=== PATIENT | male | born 1945 | race Caucasian/White ===

== ENCOUNTER 2017-08-27 23:15 | Emergency (ER) | payer OTHER ==
[~2017-08-27] VITALS: Ht 170.2 cm; Wt 75.0 kg
[~2017-08-27 23:15] MED LIST: ASPI81 PO; ATOR40TA PO; CANA300T PO; CHOL50006 PO; DICL75 PO; GEMF600 PO; GLIM1 PO; GLUCTAB PO; HYDR-3533 PO; METF500 PO; OMEP20CA5 PO
[2017-08-27 23:20] VITALS: BP 146/66; PULSE 66; RESP 20; TEMP 102; O2SAT 96
[2017-08-27] MEDS ORDERED: ATOR40TA16 PO (23:41)
[2017-08-27] MEDS ORDERED: ASPI-516 CHEW (23:41)
[2017-08-27] MEDS ORDERED: GEMF600T PO (23:41)
[2017-08-27] MEDS ORDERED: METF1000 PO (23:41)
[2017-08-27] MEDS ORDERED: GLIM1TAB PO (23:41)
[2017-08-27] MEDS ORDERED: CANA300T PO (23:41)
[2017-08-27] MEDS ORDERED: PRIL20TA2 PO (23:41)
== END 2017-08-28 00:30 | disposition left against medical advice (07) ==
LOC: PHED 23:15
DX: R05 Cough (principal); R50.9 Fever, unspecified; Z53.21 Procedure and treatment not carried out due to patient leaving prior to being seen by health care provider

== ENCOUNTER 2017-12-02 08:07 | Observation (INO) | payer OTHER ==
[2017-12-02] VITALS (9 sets, daily range): BP systolic 110–158; BP diastolic 59–71; PULSE 55–72; RESP 16–20; TEMP 96.5–99; O2SAT 94–98
[~2017-12-02] VITALS: Ht 170.2 cm; Wt 74.3 kg
[~2017-12-02 08:07] MED LIST changes: +ASPI-516 CHEW; -ASPI81 PO; -ATOR40TA PO; +ATOR40TA16 PO; -CHOL50006 PO; -DICL75 PO; -GEMF600 PO; +GEMF600T PO; -GLIM1 PO; +GLIM1TAB PO; -GLUCTAB PO; -HYDR-3533 PO; +METF1000 PO; -METF500 PO; -OMEP20CA5 PO; +PRIL20TA2 PO
[2017-12-02] MEDS ORDERED: GLIM2TAB PO (08:24)
[2017-12-02] MEDS ORDERED: SODIUM CHLOR 0.9% 1000 ML INJ 1,000 ML IV SCH (08:25)
[2017-12-02] MEDS ORDERED: MORPHINE SULFATE 4 MG/ML INJ IV PUSH ONE (08:30)
[2017-12-02] MEDS ORDERED: SODIUM CHLORIDE 0.9% FLUSH 10 ML FLUSH IV FLUSH PRN ×2 (08:30→12:00)
[2017-12-02] MEDS ORDERED: PROCHLORPERAZINE INJ 10 MG/2 ML VIAL IV PUSH ONE (08:30)
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
[2017-12-02 09:04] LABS: AUTOMATED NEUTROPHIL # 7.3 TH/MM3 (1.8-7.7); BASOPHIL # 0.1 TH/MM3 (0-0.2); BASOPHIL % 0.9 % (0.0-2.0); EOSINOPHIL # 0.1 TH/MM3 (0-0.4); HEMATOCRIT 45.7 % (39.0-51.0); HEMOGLOBIN 15.4 GM/DL (13.0-17.0); LYMPH % 12.4 % (9.0-44.0); LYMPHOCYTE # 1.2 TH/MM3 (1.0-4.8); MEAN CELL VOLUME 89.6 FL (80.0-100.0); MEAN CORPUSCULAR HEMOGLOBIN 30.3 PG (27.0-34.0); MEAN CORPUSCULAR HGB CONC 33.8 % (32.0-36.0); MEAN PLATELET VOLUME 9.2 FL (7.0-11.0); MONO % 7.5 % (0.0-8.0); MONOCYTE # 0.7 TH/MM3 (0-0.9); NEUT % 78.2 % (16.0-70.0); PLATELET COUNT 229 TH/MM3 (150-450); RED CELL DISTRIBUTION WIDTH 12.6 % (11.6-17.2); WHITE BLOOD COUNT 9.4 TH/MM3 (4.0-11.0)
[2017-12-02 09:09] LABS: CHLORIDE 100 MEQ/L (98-107); SODIUM (NA) 132 MEQ/L (136-145)
[2017-12-02 09:12] LABS: ALBUMIN 3.4 GM/DL (3.4-5.0); BICARBONATE 24.7 MEQ/L (21.0-32.0); BLOOD UREA NITROGEN 16 MG/DL (7-18); CALCIUM 8.5 MG/DL (8.5-10.1); GLUCOSE,RANDOM 295 MG/DL (74-106)
[2017-12-02 09:13] LABS: PROTHROMBIN TIME - PATIENT 10.5 SEC (9.8-11.6)
[2017-12-02 09:15] LABS: ALT (GPT) 23 U/L (12-78); AST (GOT) 30 U/L (15-37); GLOMERULAR FILTRATION RATE 74 ML/MIN (>89)
[2017-12-02 09:17] LABS: TOTAL BILIRUBIN ADULT 0.9 MG/DL (0.2-1.0); TOTAL PROTEIN 7.2 GM/DL (6.4-8.2)
[2017-12-02 09:18] LABS: ALKALINE PHOSPHATASE 58 U/L (45-117)
[2017-12-02] MEDS ORDERED: IOHEXOL 350 MG/ML 10 ML VIAL (for RAD DIAG) IVCONTRAST ONE (09:46)
[2017-12-02 10:36] LABS: BILIRUBIN, URINE NEG (NEG); BLOOD, URINE NEG (NEG); GLUCOSE,URINE 500 mg/dL (NEG); KETONE, URINE TRACE mg/dL (NEG); NITRITE,URINE NEG (NEG); URINE COLOR YELLOW (YELLW/STRAW); URINE LEUKOCYTE ESTERASE NEG (NEG)
[2017-12-02 10:46] LABS: SQUAMOUS EPITHELIAL CELL URINE 0-5 /hpf (0-5)
[2017-12-02 10:47] LABS: WBC, URINE 0-2 /hpf (0-5)
--- NOTE | 2017-12-02 10:48 | RADRPT ---
EXAM DATE: 12/02/2017 9:46 AM EDT AGE/SEX: 71 years / Male INDICATIONS: Diffuse abdominal pain and constipation x 4 days. Nausea and vomiting. CLINICAL DATA: This is the patient's initial encounter. Patient reports that signs and symptoms have been present for 4 - 6 days and indicates a pain score of 8/10. MEDICAL/SURGICAL HISTORY: Gastroesophageal reflux disease. Diabetes. Cardiovascular disease. Coronary artery stent. CABG. Fusion, cervical. ORAL CONTRAST: No oral contrast ingested. RADIATION DOSE: 10.68 CTDI (mGy) COMPARISON: [facility], CT ABDOMEN & PELVIS W CONTRAST, 11/02/2014. . TECHNIQUE: Multiple contiguous axial images were obtained through the abdomen and pelvis following b olus infusion of 80 ml Omnipaque 350 (iohexol) nonionic water-soluble contrast as a single exam dos e. No oral contrast ingested. Using automated exposure control and adjustment of the mA and/or kV ac cording to patient size, radiation dose was kept as low as reasonably achievable to obtain optimal di agnostic quality images. DICOM format image data is available electronically for review and comparis on. FINDINGS: Lower Lungs: The visualized lower lungs are clear. Liver: There is decreased density seen throughout the liver. There is a 0.7 cm hypodensity seen at th e posterior segment of the right lobe of the liver likely related to a cyst or hemangioma. It is nons pecific. There is a 0.9 cm calcified gallstone seen. There is also a smaller 4 mm suspected gallstone seen in a nondistended gallbladder. Spleen: Homogeneous density without enlargement. Pancreas: Unremarkable without mass or calcification. Kidneys: Normal in size and shape. No evidence of hydronephrosis. There is a 1.1 cm cyst seen at the superior left kidney. Adrenal Glands: Unremarkable. Aorta: Atherosclerotic calcifications are seen throughout the arterial system. There is a prominent area of calcification measuring 1.2 x 1.7 x 2.8 cm. seen anterior to the portal vein in the root of the mesentery. This is of uncertain etiology. It was present previously and appears unchanged. Bowel/Mesentery: There is distended small bowel in the mid left abdomen. There appears to be very pr ominently distended segment of small bowel seen in the upper abdomen just to the right of midline mounika suring 5.5 cm in diameter. There is a large amount of debris within the small bowel this region. Ther e does appear to be a transition point at the right lateral aspect of this is dilated segment of smal l bowel with more distal small bowel is clearly decompressed in the right mid abdomen. This appearanc e was also present on the prior CT examination from 2014. There is stool within the colon. There are scattered diverticula. Abdominal Wall: Surgical wires are seen in the midline anterior abdominal wall. Retroperitoneum: No evidence of adenopathy in the retrocrural, para-aortic, or deep pelvic regions. Bladder: Contours are smooth. Reproductive Organs: No abnormal masses or calcifications seen. Inguinal: The inguinal region is unremarkable without evidence of adenopathy. Bony Structures: Unremarkable. CONCLUSION: 1. Dilated segment of mid small bowel in the midabdomen with large amount of debris. The more proxim al small bowel is distended. There is a transition point at the right lateral aspect of this distende d segment of small bowel with decompressed bowel seen distally. Some partial obstruction may be prese nt. This appearance appears very similar on the prior CT examination from 2014 suggesting this is a c hronic issue versus intermittent recurrent abnormality. 2. Status post surgery in the past with sutures in the midline. This raises the possibility of adhes ions. 3. Hepatic steatosis. 4. Gallstones. Electronically signed by: Ismael Mcconnell MD 12/02/2017 10:47 AM EDT
[2017-12-02] MEDS: SODIUM CHLOR 0.9% 1000 ML INJ 1,000 ML IV SCH ×2 (11:54→21:54)
[2017-12-02] MEDS ORDERED: LACTULOSE SYRUP 20 GM/30 ML CUP PO PRN (12:00)
[2017-12-02] MEDS ORDERED: NALOXONE HCL 0.4 MG/ML AMP IV PUSH PRN (12:00)
[2017-12-02] MEDS ORDERED: MAGNESIUM HYDROXIDE SUSP 30 ML CUP PO PRN (12:00)
[2017-12-02] MEDS ORDERED: BISACODYL 10 MG SUPP RECTAL PRN (12:00)
[2017-12-02] MEDS ORDERED: SENNOSIDES 8.6 MG TAB PO PRN (12:00)
[2017-12-02] MEDS ORDERED: ACETAMINOPHEN 325 MG TAB PO PRN (12:00)
[2017-12-02] MEDS: ENOXAPARIN SODIUM 40 MG/0.4 ML SYRINGE SQ SCH (13:37)
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
[2017-12-02] MEDS ORDERED: DEXTROSE 50% IN WATER 50 ML VIAL(D50) IV PUSH PRN (19:00)
[2017-12-02] MEDS ORDERED: GLUCAGON 1 MG/ML VIAL OTHER PRN (19:00)
[2017-12-02] MEDS: SODIUM CHLORIDE 0.9% FLUSH 10 ML FLUSH IV FLUSH SCH (21:00)
[2017-12-03] VITALS: BP 105/56; PULSE 58; RESP 20; TEMP 97.9; O2SAT 97
--- NOTE | 2017-12-03 06:59 | RADRPT ---
EXAM DATE: 12/03/2017 6:44 AM EDT AGE/SEX: 71 years / Male INDICATIONS: Abdominal distention. CLINICAL DATA: This is the patient's subsequent encounter. Patient reports that signs and symptoms h ave been present for 4 - 6 days and indicates a pain score of 3/10. MEDICAL/SURGICAL HISTORY: . Gastroesophageal reflux disease. Diabetes. Cardiovascular disease. . Coronary artery stent. CABG. Fusion, cervical. COMPARISON: [facility], ABDOMEN FLAT & UPRIGHT, 11/03/2014. [facility], CT ABDOMEN & PELVIS W CONTRAST, 018. . FINDINGS: Supine and upright views of the abdomen were performed. The abdominal bowel gas pattern is normal. No air-fluid levels are seen. Cholelithiasis No abnormal masses, calcifications, or organomegaly is see n. The visualized lower lungs are clear. No evidence of free intraperitoneal gas. The osseous structu res are unremarkable. There is residual contrast within the bladder. CONCLUSION: No acute abnormalities. Electronically signed by: Conor Agustin MD 12/03/2017 6:57 AM EDT
[2017-12-03 07:22] LABS: BICARBONATE 25.8 MEQ/L (21.0-32.0); CALCIUM 7.5 MG/DL (8.5-10.1); CREATININE 0.76 MG/DL (0.60-1.30)
[2017-12-03 07:51] VITALS: BP 105/58; PULSE 80; RESP 20; TEMP 97.5; O2SAT 97
[2017-12-03] MEDS: SODIUM CHLORIDE 0.9% FLUSH 10 ML FLUSH IV FLUSH SCH (08:39)
[2017-12-03] MEDS ORDERED: POTASSIUM CHLOR 20 MEQ PREMIX 100 ML IV ONE (08:45)
--- NOTE | 2017-12-03 10:06 | HHI.PR ---
Subjective Remarks Patient seen and examined today for follow-up on small bowel obstruction. Patient states that he is feeling much better. Patient states that he had a large bowel movement yesterday evening. However no nursing documentation. Patient states that he still has some mild pain in his lower abdomen. Vital signs remained stable, afebrile Objective Vitals Vital Signs Date Time Temp Pulse Resp B/P (MAP) Pulse Ox O2 Delivery O2 Flow Rate FiO2 12/03/17 07:51 97.5 80 20 105/58 (74) 97 12/03/17 00:00 97.9 58 20 105/56 (72) 97 12/02/17 20:00 96.9 64 20 118/60 (79) 97 12/02/17 16:00 96.5 65 18 133/64 (87) 94 12/02/17 12:57 12/02/17 12:00 99.0 64 18 130/60 (83) 96 12/02/17 11:48 59 20 110/59 (76) 12/02/17 10:43 55 20 117/60 (79) 98 I/O 12/02/17 12/02/17 12/02/17 12/03/17 12/03/17 12/03/17 07:00 15:00 23:00 07:00 15:00 23:00 Intake Total 0 ml Balance 0 ml Intake Oral 0 ml # Voids 3 3 Result Diagram: 12/02/17 0845 12/03/17 0615 Imaging Last Impressions Abdomen X-Ray 12/03/17 0600 Signed Impressions: CONCLUSION: No acute abnormalities. Abdomen/Pelvis CT 12/02/17 0825 Signed Impressions: CONCLUSION: 1. Dilated segment of mid small bowel in the midabdomen with large amount of d ebris. The more proximal small bowel is distended. There is a transition point at the right lateral aspect of this distended segment of small bowel with decom pressed bowel seen distally. Some partial obstruction may be present. This appe arance appears very similar on the prior CT examination from 2014 suggesting th is is a chronic issue versus intermittent recurrent abnormality. 2. Status post surgery in the past with sutures in the midline. This raises th e possibility of adhesions. 3. Hepatic steatosis. 4. Gallstones. Objective Remarks GENERAL: Well-developed, well-nourished, in no acute distress. alert and orientated HEENT: Head is normocephalic without any lesions or masses noted. Facial features are symmetric. Eyes: Extraocular muscles are intact. Conjunctivae were clear. NECK: Supple without any masses. Trachea midline no deviation. No JVD, CARDIAC: Regular rhythm, regular rate. S1/S2 are heard. No murmurs gallops or rubs. LUNGS: Clear to auscultation bilaterally. No wheeze, rhonchi or rales. No use of accessory muscles on inspiration or expiration. ABDOMEN: Soft, mild tenderness noted in the lower abdomen. Nondistended. Bowel sounds heard in all 4 quadrants. No organomegaly or masses. Negative rebound, negative guarding EXTREMITIES: No edema, pulses are equal bilaterally. No cyanosis or clubbing NEUROLOGY: Mood and affect appear appropriate. Cranial nerves II through XII grossly intact. Moving all extremities, speech is clear Urinary Catheter: No Vascular Central Line Catheter: No A/P Assessment and Plan Small bowel obstruction, recurrent, resolved -Patient does have increased risk of bowel obstruction with previous abdominal surgeries -Continue conservative measures at this time -Continue IV fluids, -Continue pain control -Follow-up x-ray indicated no acute abnormalities -Patient tolerating liquid diet and advance to full diet without any complications Hyperkalemia/hypokalemia -Likely secondary to volume depletion, dehydration -Continue monitor and address as needed Coronary artery disease, hyper lipidemia -Resume home medications when patient able tolerate medications by mouth Diabetes -Accu-Cheks with sliding scale insulin, when patient started on diet DVT prevention -Subcutaneous Lovenox Discharge Planning Discharge home in stable condition Activity: Ad paula. Diet: Diabetic diet Medication per medication reconciliation Follow-up with primary medical doctor in 1 week Steve Kerr Dec 03, 2017 10:06
[2017-12-03] MEDS: SODIUM CHLOR 0.9% 1000 ML INJ 1,000 ML IV SCH (10:08)
[2017-12-03 11:19] VITALS: BP 105/56; PULSE 67; RESP 20; TEMP 98.4; O2SAT 95
--- NOTE | 2017-12-03 12:34 | HHI.DCPOC ---
Discharge Care Plan Diagnosis: (1) Small bowel obstruction Goals to Promote Your Health * To prevent worsening of your condition and complications * To maintain your health at the optimal level Directions to Meet Your Goals Take your medications as prescribed Follow your dietary instruction Follow activity as directed Keep your appointments as scheduled Take your immunizations and boosters as scheduled If your symptoms worsen call your PCP, if no PCP go to Urgent Care Center or Emergency Room Smoking is Dangerous to Your Health. Avoid second hand smoke Call the 24-hour hour crisis hotline for domestic abuse at Steve Kerr Dec 03, 2017 12:33
[2017-12-03] MEDS: ENOXAPARIN SODIUM 40 MG/0.4 ML SYRINGE SQ SCH (13:57)
[2017-12-03 15:17] VITALS: BP 108/56; PULSE 70; RESP 20; TEMP 98.2; O2SAT 95
[2017-12-03] MEDS ORDERED: INSULIN ASPART SUPPLEMENTAL SCALE SQ SCH (17:00)
[2017-12-05 08:00] VITALS: BP 133/78; PULSE 70; RESP 18; TEMP 97.2; O2SAT 93
== END 2017-12-03 16:09 | disposition home or self-care (01) ==
LOC: PHED 08:07 → PHEDA 11:54 → PH3B 12:43
PROVIDERS: ADMIT Hospitalist; ATTEND Hospitalist
DX: K56.609 Unspecified intestinal obstruction, unspecified as to partial versus complete obstruction (principal); E87.5 Hyperkalemia; E87.6 Hypokalemia; E86.0 Dehydration; E78.5 Hyperlipidemia, unspecified; K76.0 Fatty (change of) liver, not elsewhere classified; K80.20 Calculus of gallbladder without cholecystitis without obstruction; E11.9 Type 2 diabetes mellitus without complications; I25.10 Atherosclerotic heart disease of native coronary artery without angina pectoris; K21.9 Gastro-esophageal reflux disease without esophagitis; E78.00 Pure hypercholesterolemia, unspecified; K22.70 Barrett's esophagus without dysplasia; R07.9 Chest pain, unspecified; Z95.1 Presence of aortocoronary bypass graft; Z79.84 Long term (current) use of oral hypoglycemic drugs; Z79.01 Long term (current) use of anticoagulants; Z95.5 Presence of coronary angioplasty implant and graft; Z98.1 Arthrodesis status; Z87.891 Personal history of nicotine dependence
CPT/HCPCS: 74019; 74177; 80048; 80053; 81001; 82948; 83605; 83690; 85025; 85610; 85730; 96361; 96365; 96366; 96372; 96375; 99285; G0378; J0780; J1650; J2270; J3480; J7030; Q9967